=== PATIENT | female | born 1985 | race Caucasian/White ===

== ENCOUNTER → 2017-02-08 | Outpatient (CLI) | payer BC, MEDICAID ==
--- NOTE | 2017-02-08 16:52 | RADIOLOGY REPORT (SQ) ---
EXAM DESCRIPTION: CHEST SINGLE VIEW COMPLETED DATE/TIME: 02/08/2017 4:30 pm REASON FOR STUDY: COUGH COMPARISON: 11/01/2011 EXAM PARAMETERS: NUMBER OF VIEWS: One view. TECHNIQUE: Single frontal radiographic view of the chest acquired. RADIATION DOSE: NA LIMITATIONS: None. FINDINGS: LUNGS AND PLEURA: No opacities, masses or pneumothorax. No pleural effusion. MEDIASTINUM AND HILAR STRUCTURES: No masses. Contour normal. HEART AND VASCULAR STRUCTURES: Heart normal in size. Normal vasculature. BONES: No acute findings. HARDWARE: None in the chest. OTHER: No other significant finding. IMPRESSION: NO ACUTE RADIOGRAPHIC FINDING IN THE CHEST. TECHNICAL DOCUMENTATION: JOB ID: [id number]
== END ==
LOC: OD 16:13
PROVIDERS: ATTEND Physician Assistant
DX: R05 Cough (principal)
CPT/HCPCS: 71010

== ENCOUNTER → 2017-03-30 | Outpatient (CLI) | payer BC, MEDICAID | LOC: OD 13:04 | PROVIDERS: ATTEND Specialist | DX: G40.89 Other seizures (principal); Z79.899 Other long term (current) drug therapy | CPT/HCPCS: 36415; 80156 ==

== ENCOUNTER → 2018-03-28 | Outpatient (CLI) | payer BC, MEDICAID ==
[2018-03-28 09:54] LABS: ABSOLUTE EOSINOPHILS # (AUTO) 0.1 10^3/uL (0.0-0.6); ABSOLUTE LYMPHOCYTES (AUTO) 1.3 10^3/uL (0.5-4.7); ABSOLUTE MONOCYTES (AUTO) 0.4 10^3/uL (0.1-1.4); ABSOLUTE NEUT (AUTO) 1.7 10^3/uL (1.7-8.2); BASOPHILS % (AUTO) 0.5 % (0-2); EOSINOPHILS % (AUTO) 3.2 % (0-6); HEMOGLOBIN 13.5 g/dL (12.0-15.5); LYMPHOCYTES % (AUTO) 35.9 % (13-45); MEAN CORPUSCULAR HEMOGLOBIN 30.1 pg (27.0-33.4); MEAN CORPUSCULAR HGB CONC 33.7 g/dL (32.0-36.0); MEAN CORPUSCULAR VOLUME 89 fl (80-97); MONOCYTES % (AUTO) 11.9 % (3-13); PLATELET COUNT 272 10^3/uL (150-450); RED BLOOD COUNT 4.49 10^6/uL (3.72-5.28); RED CELL DISTRIBUTION WIDTH 13.6 % (11.5-14.0); SEGMENTED NEUTROPHILS % (AUTO) 48.5 % (42-78); TOTAL CELLS COUNTED % (AUTO) 100 %; WHITE BLOOD COUNT 3.6 10^3/uL (4.0-10.5)
[2018-03-28 10:18] LABS: ALANINE AMINOTRANSFERASE 27 U/L (9-52); ALBUMIN 4.6 g/dL (3.5-5.0); ALKALINE PHOSPHATASE 118 U/L (38-126); ANION GAP 13 (5-19); ASPARTATE AMINO TRANSFERASE 16 U/L (14-36); BILIRUBIN,DIRECT 0.2 mg/dL (0.0-0.4); BILIRUBIN,TOTAL 0.3 mg/dL (0.2-1.3); BLOOD UREA NITROGEN 7 mg/dL (7-20); CALCIUM 9.7 mg/dL (8.4-10.2); CARBON DIOXIDE 27 mmol/L (22-30); CHLORIDE 105 mmol/L (98-107); GLUCOSE 90 mg/dL (75-110); POTASSIUM 4.5 mmol/L (3.6-5.0); SODIUM 144.8 mmol/L (137-145); TOTAL PROTEIN 8.1 g/dL (6.3-8.2); TRIGLYCERIDES 66 mg/dL (<150)
[2018-03-28 10:30] LABS: DIRECT LDL 118 mg/dL (<100)
== END ==
LOC: CAR 08:43
PROVIDERS: ATTEND Family Medicine
DX: Z00.00 Encounter for general adult medical examination without abnormal findings (principal); K59.00 Constipation, unspecified; G40.909 Epilepsy, unspecified, not intractable, without status epilepticus; E55.9 Vitamin D deficiency, unspecified; Z79.899 Other long term (current) drug therapy
CPT/HCPCS: 80053; 80061; 80156; 82306; 84443; 85025